=== PATIENT | female | born 1980 | race Caucasian/White ===

== ENCOUNTER 2017-04-17 09:50 | Emergency (ER) | payer OTHER ==
--- NOTE | 2017-04-17 13:12 | UC ---
Minor Trauma HPI - HPI Summary HPI Summary: 1. 2 DAYS AGO TRIPPED ON THE STAIRS AND FELL FORWARD. LANDED ON KNEES AND ELBOWS. HAS ABRASION TO LEFT KNEE AND PAIN WITH WALKING. ALSO PAIN IN LEFT ELBOW. NO HEAD INJURY. NO LOC. TDAP 2014. 2. C/O 3 WEEKS OF LEFT EAR PAIN AND DIZZINESS. HAS HAD THESE SX INTERMITTENTLY FOR ABOUT A YEAR AND FOLLOWS WITH ENT. HAS A SURGICAL CONSULT UPCOMING. - History of Current Complaint Chief Complaint: UCUpperExtremity Stated Complaint: elbow injury and ear ache Time Seen by Provider: 04/17/17 12:51 Hx Obtained From: Patient Hx Last Menstrual Period: 03/30/2017 Onset/Duration: Sudden Onset, Lasting Days, Still Present Onset Of Pain: Immediate Severity Initially: Moderate Severity Currently: Moderate Pain Intensity: 9 Pain Scale Used: 0-10 Numeric Mechanism Of Injury: Fall From A Standing Position Aggravating Factor(s): Ambulation Alleviating Factor(s): Nothing Associated Signs And Symptoms: Negative: Loss Of Consciousness - Allergies/Home Medications Allergies/Adverse Reactions: Allergies Allergy/AdvReac Type Severity Reaction Status Date / Time Cephalexin [From Keflex] Allergy Intermediate Hives Verified 04/17/17 11:34 Home Medications: Home Medications B-Complex Vitamins [Vitamin B Complex] 1 tab PO DAILY WITH MEAL 04/17/17 [ History Confirmed 04/17/17] Cholecalciferol [Vitamin D] 1,000 unit PO DAILY WITH MEAL 04/17/17 [History Confirmed 04/17/17] DULoxetine DR CAP* [Cymbalta CAP*] 60 mg PO DAILY 04/17/17 [History Confirmed ] Magnesium [Magnesium 400 mg] 1 tab PO DAILY WITH MEAL 04/17/17 [History Confirmed 04/17/17] Nuvaring 04/17/17 [History] Zinc [Elite Zinc] 15 mg PO DAILY WITH MEAL 04/17/17 [History Confirmed 04/17/17] PMH/Surg Hx/FS Hx/Imm Hx - Additional Past Medical History Additional PMH: "AUTOIMMUNE ISSUES" Respiratory History: Asthma Other GI/ History: CELIAC - Surgical History Surgical History: Yes Surgery Procedure, Year, and Place: DENTAL SURGERY 04/21/14. T&A 05/12/13. C SECTION 10/17/14. NUVARING - SAFE FOR ONLY 1.5T - Family History Known Family History: Positive: Hypertension - Social History Alcohol Use: Occasionally Substance Use Type: None Smoking Status (MU): Former Smoker Type: Cigarettes Have You Smoked in the Last Year: Yes Household Exposure Type: Cigarettes - Immunization History Most Recent Influenza Vaccination: 2016 Most Recent Tetanus Shot: 07/11/14 Most Recent Pneumonia Vaccination: n/a Review of Systems Constitutional: Negative Skin: Other - ABRASION ENT: Ear Ache Respiratory: Negative Cardiovascular: Negative Gastrointestinal: Negative Musculoskeletal: Arthralgia, Decreased ROM, Edema All Other Systems Reviewed And Are Negative: Yes Physical Exam Triage Information Reviewed: Yes Appearance: Well-Appearing, No Pain Distress, Well-Nourished Vital Signs: Initial Vital Signs Temp 98.7 F 04/17/17 11:38 Pulse 81 04/17/17 11:38 Resp 18 04/17/17 11:38 BP 114/77 04/17/17 11:38 Pulse Ox 100 04/17/17 11:38 Vital Signs Reviewed: Yes Eyes: Positive: Conjunctiva Clear ENT: Positive: Hearing grossly normal, Pharynx normal, TMs normal Neck: Positive: Supple Respiratory: Positive: No respiratory distress, No accessory muscle use Cardiovascular: Positive: Pulses Normal Abdomen Description: Positive: Soft Musculoskeletal: Positive: No Edema, ROM Limited @ - LEFT KNEE, Other: - TTP LEFT ELBOW MEDIAL EPICONDYLE. FULL ROM LEFT ELBOW. LEFT KNEE: TENDER DIFFUSELY OVER KNEE. MCL AND LCL INTACT TO STRESS TESTING. NEG LACHMANS. NEG DRAWERS SIGNS. POS MCMURRAYS MEDIAL. NO TENDERNESS OVER PATELLAR LIGAMENT OR QUADRICEPS TENDON. DECREASED ROM (FLEXION). Neurological: Positive: Alert Psychological: Positive: Age Appropriate Behavior Skin: Positive: Other - ABRASION LEFT KNEE. ECCHYMOSIS RIGHT KNEE Diagnostics - Radiology LEFT ELBOW XRAY Xray Interpretation: No Acute Changes Radiology Interpretation Completed By: Radiologist No standard instances Xray Interpretation: No Acute Changes Radiology Interpretation Completed By: Radiologist Minor Trauma Course/Dx - Differential Dx/Diagnosis Provider Diagnoses: 1. LEFT KNEE SPRAIN. 2. LEFT ELBOW CONTUSION. 3. LEFT KNEE ABRASION Discharge - Discharge Plan Condition: Stable Disposition: HOME Patient Education Materials: Knee Sprain (ED), Contusion in Adults (ED), Elbow Sprain (ED), Abrasion (ED) Referrals: Jose Smith MD [Medical Doctor] - If Needed Luis Montes MD [Primary Care Provider] - If Needed Additional Instructions: LEFT ELBOW AND LEFT KNEE XRAYS TODAY UNREMARKABLE. REST, ICE, COMPRESS, ELEVATE. SLING NEEDED FOR COMFORT. OTC MEDS FOR PAIN. ANTIBIOTIC OINTMENT AND NONSTICK BANDAGE ON YOUR KNEE ABRASION. FOLLOW-UP WITH ORTHO IF NOT IMPROVING OVER THE NEXT 1-2 WEEKS. CALL YOUR ENT TO DISCUSS YOUR PERSISTENT EAR PAIN.
--- NOTE | 2017-04-17 13:43 | RAD ---
HISTORY: Fall, medial epicondyles pain, left elbow COMPARISONS: None VIEWS: 4, Frontal, lateral, and oblique views of the left elbow FINDINGS: BONE DENSITY: Normal. BONES: There is no displaced fracture. JOINTS: There is no arthropathy. There is no posterior supracondylar fat pad to suggest a joint effusion. ALIGNMENT: There is no dislocation. SOFT TISSUES: Unremarkable. OTHER FINDINGS: None. IMPRESSION: NO ACUTE OSSEOUS INJURY. IF SYMPTOMS PERSIST, RECOMMEND REPEAT IMAGING.
--- NOTE | 2017-04-17 13:44 | RAD ---
HISTORY: Fall, left knee pain COMPARISONS: None VIEWS: 4, Frontal, lateral, axial, and oblique views of the left knee FINDINGS: BONE DENSITY: Normal. BONES: There is no displaced fracture. JOINTS: There is no arthropathy. There is no suprapatellar joint effusion or lipohemarthrosis. ALIGNMENT: There is no dislocation. SOFT TISSUES: Unremarkable. OTHER FINDINGS: None. IMPRESSION: NO ACUTE OSSEOUS INJURY. IF SYMPTOMS PERSIST, RECOMMEND REPEAT IMAGING.
[2017-04-17] MEDS ORDERED: Acetaminophen TAB* 325 MG PO ONE (13:54)
[2017-04-17 14:15] VITALS: BP 120/80
== END 2017-04-17 14:16 | disposition home or self-care (01) ==
LOC: UCEAST 09:50
DX: S80.212A Abrasion, left knee, initial encounter (principal); S50.02XA Contusion of left elbow, initial encounter; S83.92XA Sprain of unspecified site of left knee, initial encounter; W10.9XXA Fall (on) (from) unspecified stairs and steps, initial encounter; Y93.01 Activity, walking, marching and hiking; Y92.9 Unspecified place or not applicable; Y99.9 Unspecified external cause status; H92.02 Otalgia, left ear; R42 Dizziness and giddiness; Z87.891 Personal history of nicotine dependence
CPT/HCPCS: 99213; A9270-GY; G0463

== ENCOUNTER → 2017-05-17 20:34 | Emergency (ER) | payer OTHER ==
[~2017-05-17 20:34] MED LIST: HYDROmorphone INJ* 1 MG/ML CARPUJECT SYRINGE IM ONE; PROCHLORPERAZINE INJ 5 MG/ML 2 ML VIAL IM ONE
--- OUTSIDE RECORDS SUMMARY | 2017-05-17 20:54 | XMS REPORT ---
:1980 External Reference #:[id number] Author Organization [facility] Address [address] [address] Phone [phone] Care Team Providers Name Role Phone Luis Montes MD Primary Care Physician Unavailable Payers Type Date Identification Numbers Payment Provider Subscriber Commercial Policy Number: [id number] [facility] PayID: [id number] [address] [address] [place] [address] Problems Date Description Provider Status Onset: 10/17/2015 Immunologic Xavi Granda M.D. Active Onset: 10/17/2015 Inflammatory polyarthropathy Xavi Granda M.D. Active Onset: 10/17/2015 Other specified abnormal immunological Xavi Granda M.D. Active findings in serum Onset: 10/17/2015 Taking medication Xavi Granda M.D. Active Onset: 10/17/2015 Chronic pain Xavi Granda M.D. Active Family History Date Family Member(s) Problem(s) Comments General Rheumatoid Arthritis Father Iga deficiency Social History Type Date Description Comments ETOH Use Denies alcohol use Smoking Patient is a former smoker Allergies, Adverse Reactions, Alerts Date Description Reaction Status Severity Comments 07/17/2015 Keflex Urticaria active 07/17/2015 Gluten Celiac disease active 07/17/2015 Bee Sting active 04/21/2017 Tizanidine active Medications Medication Date Status Form Strength Qnty SIG Indications Ordering Provider Voltaren 04/24/ Active Gel 1% 200un apply 2 H92.02 2016 its grams Margarita, twice M.D. daily as needed for pain to the posterior left ear Cymbalta 04/24/ Active Caps DR 60mg 90cap 1 by mouth M35.7 2016 Part s every day Chiara Avila Methotrexate 03/16/ Active Tablets 2.5mg 30tab take 4 M06.4 Kai 2016 s capsules/t Margarita, ablets by Chiara mouth once weekly Folic Acid 03/16/ Active Tablets 1mg 90tab take one M06.4 2016 s capsule/ta Margarita, blet daily M.D. by mouth Tramadol HCL 12/12/ Active Tablets 50mg 60tab take one 2016 s capsule/ta Margarita, blet by MOtis mouth twice daily as needed for pain Cyclobenzaprine 09/23/ Active Tablets 10mg 30tab one by Kai DIXON 2016 s mouth at [facility], at bedtime M.D. as needed for spasms Nuvaring / Active Ring 0.12-0.01 Zane-H 0000 5mg/24HR Salina epstein PA Epipen 2-Alfred / Active Solution 0.3mg/0.3 use as Unknown 0000 Auto-Injec ML directed t Vitamin B Complex / Active Tablets 1 by mouth Unknown 0000 every day Vitamin D3 / Active Chewtabs 5000Unit 1 by mouth Unknown 0000 every day Zinc Chelated / Active Tablets 1 tab Unknown 0000 daily (otc) Magnesium / Active Tablets 1 by mouth Unknown 0000 every day Acetaminophen / Active Tablets 500mg 1-2 tabs Unknown 0000 3x a day as needed Prednisone 03/03/ Hx Tablets 10mg 30tab take 4 2016 - tabs by Margarita 04/24/ mouth M.D. 2016 daily for 2 days then 3 tabs daily for 2 days then 2 tabs for 2 days then 1 tab for 2 days then d/c Cymbalta 12/17/ Hx Caps DR 30mg 42cap 1 by mouth M35.7 Kai 2016 - Part s every day Margarita 04/24/ for 1 week M.D. 2016 then 2 daily ongoing Etodolac 12/12/ Hx Tablets 400mg 30tab Take one Kai 2016 - s capsule/ta Margarita, 03/16/ blet by Chiara Georges mouth twice daily as needed for pain, avoid with other NSAIDs Prednisone 11/17/ Hx Tablets 10mg 30tab take four Kai 2016 - s tabs daily Margarita, 12/12/ for 2 days M.D. 2016 and taper by 10mg every 2 days until finished Meloxicam 09/23/ Hx Tablets 7.5mg 60tab take one Kai 2016 - s tab twice Margarita, 12/09/ daily as M.D. 2017 needed for pain, avoid other nsaids Plaquenil 07/22/ Hx Tablets 200mg 60tab Take 1 M35.7 Kai 2016 - s Tablet By Margarita, 12/17/ Mouth M.D. 2016 Every Day For 1 Week, Then Take 2 Tablets By Mouth Every Day Ongoing Enbrel 05/26/ Hx Soln 50mg/ml 11.76 50mg sq M06.4 Kai 2016 - Prefill ml every week Margarita, 09/23/ Syringe (hasn't M.D. 2016 started it yet) Aleve 10/16/ Hx Tablets 220mg as needed Xavi 2015 - Endo, 09/23/ M.D. 2016 Diclofenac Sodium 10/16/ Hx Tablets DR 75mg 60tab 1 by mouth M06.4 Xavi 2015 - s twice a Endo, 05/20/ day M.D. 2016 Sulfasalazine 10/16/ Hx Tablets DR 500mg 120ta 1 every M06.4 Xavi 2015 - bs day x 1 Endo, 03/04/ week, 1bid M.D. 2015 x 1 week, then 1 three times a day x 1 week, then 2 by mouth twice a day Vitamin D / Hx Tablets 4000Iu by mouth Unknown 0000 - everyday 2015 Vitamin C / Hx Tablets 500mg 1 by mouth Unknown 0000 - every day 2015 Ibuprofen / Hx Capsules 200mg as needed Unknown 0000 - 2016 Medications Administered in Office Medication Date Status Form Strength Qnty SIG Indications Ordering Provider PPD Administered Injection Unknown 7 Vital Signs Date Vital Result Comment 04/22/2017 Heart Rate 78 /min BP Systolic Sitting 124 mmHg BP Diastolic Sitting 80 mmHg Respiratory Rate 18 /min Body Temperature 96.9 F 03/16/2017 Height 67.5 inches 5'7.50" Weight 212.00 lb Heart Rate 63 /min BP Systolic Sitting 121 mmHg BP Diastolic Sitting 82 mmHg Respiratory Rate 14 /min Pain Level 5 BMI (Body Mass Index) 32.7 kg/m2 01/08/2017 Height 67.5 inches 5'7.50" Weight 200.00 lb Heart Rate 72 /min BP Systolic 134 mmHg BP Diastolic 82 mmHg Respiratory Rate 16 /min Body Temperature 97.8 F BMI (Body Mass Index) 30.9 kg/m2 12/17/2016 Height 67.5 inches 5'7.50" Heart Rate 88 /min BP Systolic Sitting 110 mmHg BP Diastolic Sitting 70 mmHg Respiratory Rate 14 /min Pain Level 7 09/23/2016 Height 67.5 inches 5'7.50" Weight 198.00 lb Heart Rate 84 /min BP Systolic Sitting 110 mmHg BP Diastolic Sitting 70 mmHg Respiratory Rate 14 /min BMI (Body Mass Index) 30.6 kg/m2 07/22/2016 Height 67.5 inches 5'7.50" Weight 205.38 lb Heart Rate 74 /min BP Systolic Sitting 124 mmHg BP Diastolic Sitting 82 mmHg Respiratory Rate 14 /min Body Temperature 96.8 F Pain Level 8 BMI (Body Mass Index) 31.7 kg/m2 05/26/2016 Height 67.5 inches 5'7.50" Weight 204.00 lb Heart Rate 80 /min BP Systolic Sitting 120 mmHg BP Diastolic Sitting 80 mmHg Respiratory Rate 14 /min Body Temperature 96.2 F Pain Level 5 BMI (Body Mass Index) 31.5 kg/m2 11/28/2015 Height 67.5 inches 5'7.50" Weight 193.12 lb Heart Rate 80 /min BP Systolic Sitting 128 mmHg BP Diastolic Sitting 80 mmHg Respiratory Rate 14 /min Body Temperature 98.6 F Pain Level 5 Lower back BMI (Body Mass Index) 29.8 kg/m2 10/17/2015 Height 67.5 inches 5'7.50" Weight 199.00 lb Heart Rate 82 /min BP Systolic Sitting 104 mmHg BP Diastolic Sitting 78 mmHg Body Temperature 98.4 F Pain Level 4 BMI (Body Mass Index) 30.7 kg/m2 07/17/2015 Height 67.5 inches 5'7.50" Weight 203.00 lb Heart Rate 70 /min BP Systolic Sitting 110 mmHg BP Diastolic Sitting 78 mmHg Pain Level 4 BMI (Body Mass Index) 31.3 kg/m2 Results Test Date Test Result H/L Range Note Comp Metabolic Panel 12/15/2016 Sodium 138 mmol/L 133-145 Potassium 4.0 mmol/L 3.5-5.0 Chloride 107 mmol/L 101-111 Co2 Carbon Dioxide 24 mmol/L 22-32 Anion Gap 7 mmol/L 2-11 Glucose 86 mg/dL 70-100 Blood Urea Nitrogen 9 mg/dL 6-24 Creatinine 0.72 mg/dL 0.51-0.95 BUN/Creatinine Ratio 12.5 8-20 Calcium 9.2 mg/dL 8.6-10.3 Total Protein 6.8 g/dL 6.4-8.9 Albumin 4.3 g/dL 3.2-5.2 Globulin 2.5 g/dL 2-4 Albumin/Globulin Ratio 1.7 1-3 Total Bilirubin 1.00 mg/dL 0.2-1.0 Alkaline Phosphatase 31 U/L Low 34-104 Alt 18 U/L 7-52 Ast 15 U/L 13-39 Egfr Non- 92.2 >60 Egfr 118.5 >60 1 CBC Auto Diff 12/15/2016 White Blood Count 6.0 10^3/uL 3.5-10.8 Red Blood Count 4.76 10^6/uL 4.0-5.4 Hemoglobin 13.4 g/dL 12.0-16.0 Hematocrit 39 % 35-47 Mean Corpuscular Volume 82 fL 80-97 Mean Corpuscular Hemoglobin 28 pg 27-31 Mean Corpuscular HGB Conc 34 g/dL 31-36 Red Cell Distribution Width 14 % 10.5-15 Platelet Count 241 10^3/uL 150-450 Mean Platelet Volume 9 um3 7.4-10.4 Abs Neutrophils 3.8 10^3/uL 1.5-7.7 Abs Lymphocytes 1.7 10^3/uL 1.0-4.8 Abs Monocytes 0.2 10^3/uL 0-0.8 Abs Eosinophils 0.2 10^3/uL 0-0.6 Abs Basophils 0 10^3/uL 0-0.2 Abs Nucleated RBC 0 10^3/uL Granulocyte % 63.3 % 38-83 Lymphocyte % 28.3 % 25-47 Monocyte % 4.1 % 1-9 Eosinophil % 3.6 % 0-6 Basophil % 0.7 % 0-2 Nucleated Red Blood Cells % 0 Laboratory test finding 12/15/2016 Erythrocyte Sed Rate 4 mm/Hr 0-14 2 C Reactive Protein 5.52 mg/L High < 5.00 3 Urinalysis Profile 12/15/2016 Urine Color Yellow Urine Appearance Cloudy Urine Specific [place] 1.013 1.010-1.030 Urine pH 5.0 5-9 Urine Urobilinogen Negative Negative Urine Ketones Negative Negative Urine Protein Negative Negative Urine Leukocytes Trace Negative Urine Blood Negative Negative Urine Nitrite Negative Negative Urine Bilirubin Negative Negative Urine Glucose Negative Negative Urine White Blood Cell Trace(0-5/hpf) Absent Urine Red Blood Cell Trace(0-2/hpf) Absent Urine Bacteria Absent Absent Urine Squamous Epithelial Cell Present Absent Urine Culture And 12/15/2016 Urine Culture SEE RESULT BELOW 4 Sensitivities Laboratory test finding 09/19/2016 Erythrocyte Sed Rate 7 mm/Hr 0-14 C Reactive Protein 2.04 mg/L < 5.00 5 CBC Auto Diff 09/19/2016 White Blood Count 4.6 10^3/uL 3.5-10.8 Red Blood Count 5.11 10^6/uL 4.0-5.4 Hemoglobin 13.8 g/dL 12.0-16.0 Hematocrit 41 % 35-47 Mean Corpuscular Volume 81 fL 80-97 Mean Corpuscular Hemoglobin 27 pg 27-31 Mean Corpuscular HGB Conc 34 g/dL 31-36 Red Cell Distribution Width 14 % 10.5-15 Platelet Count 249 10^3/uL 150-450 Mean Platelet Volume 9 um3 7.4-10.4 Abs Neutrophils 2.4 10^3/uL 1.5-7.7 Abs Lymphocytes 1.8 10^3/uL 1.0-4.8 Abs Monocytes 0.3 10^3/uL 0-0.8 Abs Eosinophils 0.1 10^3/uL 0-0.6 Abs Basophils 0 10^3/uL 0-0.2 Abs Nucleated RBC 0 10^3/uL Granulocyte % 52.6 % 38-83 Lymphocyte % 38.3 % 25-47 Monocyte % 6.6 % 1-9 Eosinophil % 1.5 % 0-6 Basophil % 1.0 % 0-2 Nucleated Red Blood Cells % 0.1 Laboratory test 09/19/2016 Immunoglobulin A (Iga) 125 mg/dL 61 - 356 6 finding Laboratory test 07/22/2016 Erythrocyte Sed Rate <pending> finding C Reactive Protein <pending> Laboratory test 07/22/2016 Immunoglobulin A (Iga) <pending> finding Laboratory test 07/01/2016 C Reactive Protein 2.93 mg/L < 5.00 7 finding Connective Tissue 07/01/2016 Anti-Nuclear Antibody 0.3 U 8 Panel Cyclic Citrullinated Peptide <15.6 U 9 Interpretation See Comment 10 CBC Auto Diff 07/01/2016 White Blood Count 6.7 10^3/uL 3.5-10.8 Red Blood Count 4.80 10^6/uL 4.0-5.4 Hemoglobin 12.7 g/dL 12.0-16.0 Hematocrit 38 % 35-47 Mean Corpuscular Volume 79 fL Low 80-97 Mean Corpuscular Hemoglobin 26 pg Low 27-31 Mean Corpuscular HGB Conc 33 g/dL 31-36 Red Cell Distribution Width 15 % 10.5-15 Platelet Count 234 10^3/uL 150-450 Mean Platelet Volume 9 um3 7.4-10.4 Abs Neutrophils 4.3 10^3/uL 1.5-7.7 Abs Lymphocytes 1.8 10^3/uL 1.0-4.8 Abs Monocytes 0.4 10^3/uL 0-0.8 Abs Eosinophils 0.1 10^3/uL 0-0.6 Abs Basophils 0 10^3/uL 0-0.2 Abs Nucleated RBC 0.01 10^3/uL Granulocyte % 64.2 % 38-83 Lymphocyte % 27.5 % 25-47 Monocyte % 6.2 % 1-9 Eosinophil % 1.5 % 0-6 Basophil % 0.6 % 0-2 Nucleated Red Blood Cells % 0.1 Comp Metabolic Panel 07/01/2016 Sodium 138 mmol/L 133-145 Potassium 4.0 mmol/L 3.5-5.0 Chloride 107 mmol/L 101-111 Co2 Carbon Dioxide 24 mmol/L 22-32 Anion Gap 7 mmol/L 2-11 Glucose 92 mg/dL 70-100 Blood Urea Nitrogen 7 mg/dL 6-24 Creatinine 0.75 mg/dL 0.51-0.95 BUN/Creatinine Ratio 9.3 8-20 Calcium 9.3 mg/dL 8.6-10.3 Total Protein 6.7 g/dL 6.4-8.9 Albumin 4.2 g/dL 3.2-5.2 Globulin 2.5 g/dL 2-4 Albumin/Globulin Ratio 1.7 1-3 Total Bilirubin 1.10 mg/dL High 0.2-1.0 Alkaline Phosphatase 37 U/L 34-104 Alt 20 U/L 7-52 Ast 15 U/L 13-39 Egfr Non- 88.5 >60 Egfr 113.8 >60 11 Laboratory test finding 07/01/2016 Rheumatoid Factor 17 IU/mL <15 12 Uric Acid 4.3 mg/dL 2.3-6.6 13 Laboratory test finding 09/03/2015 Angiotensin Converting Enzyme 19 U/L 8 - 53 14 C Reactive Protein 2.07 mg/L < 5.00 15 Cyclic Citrullinated Pep Igg <15.6 U 16 Joanna Igg AB Reflex 09/03/2015 SS-A/Ro Antibody <0.2 U 17 SS-B/La Antibody <0.2 U 18 Sm (Lopez) IgG Antibody <0.2 U 19 U1-nRNP Antibody <0.2 U 20 Scl-70 (Scleroderma) Antibody <0.2 U 21 Myranda-1 Antibody <0.2 U 22 Igg Subclasses 09/03/2015 Total IgG 790 mg/dL 767 - 1590 Immunoglobulin G1 467 mg/dL 341 - 894 Immunoglobulin G2 232 mg/dL 171 - 632 Immunoglobulin G3 58.3 mg/dL 23 Immunoglobulin G4 23.1 mg/dL 24 S.Pneumoniae Igg AB 23 09/03/2015 S. pneumoniae Type 1 <0.5 g/mL &gt ;=2.3 Serotyp IgG AB S. pneumoniae Type 2 IgG AB 0.7 g/mL >=1.0 S. pneumoniae Type 3 IgG AB 0.2 g/mL >=1.8 S. pneumoniae Type 4 IgG AB <0.2 g/mL >=0.6 S. pneumoniae Type 5 IgG AB 6.2 g/mL >=10.7 S. pneumoniae Type 8 IgG AB <0.3 g/mL >=2.9 S. pneumoniae Type 9N IgG AB 1.1 g/mL >=9.2 S. pneumoniae Type 12F IgG AB <0.1 g/mL >=0.6 S. pneumoniae Type 14 IgG AB 9.4 g/mL >=7.0 S. pneumoniae Type 17F IgG AB <0.9 g/mL >=7.8 S. pneumoniae Type 19F IgG AB 5.3 g/mL >=15.0 S. pneumoniae Type 20 IgG AB <0.2 g/mL >=1.3 S. pneumoniae Type 22F IgG AB 4.0 g/mL >=7.2 S. pneumoniae Type 23F IgG AB 1.3 g/mL >=8.0 S. pneumoniae Type 6B IgG AB <0.6 g/mL >=4.7 S. pneumoniae Type 10A IgG AB <0.5 g/mL >=2.9 S. pneumoniae Type 11A IgG AB 0.8 g/mL >=2.4 S. pneumoniae Type 7F IgG AB 1.1 g/mL >=3.2 S. pneumoniae Type 15B IgG AB 3.2 g/mL >=3.3 S. pneumoniae Type 18C IgG AB <0.1 g/mL >=3.3 S. pneumoniae Type 19A IgG AB <0.8 g/mL >=17.1 S. pneumoniae Type 9V IgG AB 2.3 g/mL >=2.6 S. pneumoniae Type 33F IgG AB 1.4 g/mL >=1.7 25 Laboratory test finding 09/03/2015 Immunoglobulin G (Igg) TNP 26 Immunoglobulin M (Igm) 48 mg/dL 37 - 286 27 Hepatitis Acute Panel 09/03/2015 Hepatitis C Antibody Nonreactive Nonreactive Hepatitis A AB Igm Nonreactive Nonreactive Hepatitis B Core AB Igm Nonreactive Nonreactive Hepatitis B Surface Ag Nonreactive Nonreactive Laboratory test finding 09/03/2015 Erythrocyte Sed Rate 9 mm/Hr 0-14 Rheumatoid Factor 25 IU/mL <15 28 Hla B27 09/03/2015 Hla B27 Positive 29 Hla B27 Interp See Comment 30 1 Because ethnic data is not always readily available, this report includes an eGFR for both -Americans and non- Americans. The National Kidney Disease Education Program (NKDEP) does not endorse the use of the MDRD equation for patients that are not between the ages of 18 and 70, are , have extremes of body size, muscle mass, or nutritional status, or are non- or non-. According to the National Kidney Foundation, irrespective of diagnosis, the stage of the disease is based on the level of kidney function: Stage Description GFR(mL/min/1.73 m(2)) 1 Kidney damage with normal or decreased GFR 90 2 Kidney damage with mild decrease in GFR 60-89 3 Moderate decrease in GFR 30-59 4 Severe decrease in GFR 15-29 5 Kidney failure <15 (or dialysis) 2 Please schedule labs and u/a and renal ultrasound this week 3 Acute inflammation: >10.00 4 SEE RESULT BELOW Name: LORRIE GOMEZ : [address]: Kai Avila MD Acct: [id number] Unit: [id number] AGE: 36 Location: LAB Re12/15/16 SEX: F Status: REG REF SPEC: [id number] STEVEN: 12/15/16-[address] [facility] [address]: Kai Avila MD REQ: [id number] RECD: 12/15/16 STATUS: COMP _ SOURCE: URINE SPDESC: ORDERED: Urine Culture Procedure Result Reported Site Urine Culture Final 12/17/16- 820 ML Organism 1 ESCHERICHIA COLI [place] Count 25-50,000 (Moderate) CFU/ML Organism 2 NORMAL BONG [place] Count 10-25,000 (Moderate) CFU/ML 1. ESCHERICHIA COLI M.I.C. RX --------- ------ Ampicillin <=2 S Cefazolin <=4 S Cefepime <=1 S Ceftriaxone <=1 S Ciprofloxacin <=0.25 S Gentamicin <=1 S Levofloxacin <=0.12 S Meropenem <=0.25 S Nitrofurantoin <=16 S Tetracycline <=1 S Pipercillin/Tazobactam <=4 S Trimethoprim/Sulfamethoxazole <=20 S Amoxicillin/Clavulanic Acid <=2 S Aztreonam <=1 S Contact the Microbiology Department for any additional antibiotic reporting. * ML - MAIN LAB ([facility]) . END OF REPORT * ML=Testing performed at Main Lab DEPARTMENT OF PATHOLOGY, [address] [place] [address] Juan Pablo Mixon M.D. Director [facility] # [id number] 5 Acute inflammation: >10.00 6 Test Performed by: [place] [address] 7 Acute inflammation: >10.00 8 REFERENCE VALUE <=1.0 (Negative) 9 REFERENCE VALUE <20.0 (Negative) 10 Tests for antibodies to dsDNA and JOANNA antigens are not performed automatically unless the ANJANA result is > or= 3.0 U. Studies performed at [facility] indicate that positive ANJANA results <3.0 U are rarely accompanied by positive second order tests. Test Performed by: [place] [address] Paper Counter: Marc Porter II, M.D., Ph.D. 11 Because ethnic data is not always readily available, this report includes an eGFR for both -Americans and non- Americans. The National Kidney Disease Education Program (NKDEP) does not endorse the use of the MDRD equation for patients that are not between the ages of 18 and 70, are , have extremes of body size, muscle mass, or nutritional status, or are non- or non-. According to the National Kidney Foundation, irrespective of diagnosis, the stage of the disease is based on the level of kidney function: Stage Description GFR(mL/min/1.73 m(2)) 1 Kidney damage with normal or decreased GFR 90 2 Kidney damage with mild decrease in GFR 60-89 3 Moderate decrease in GFR 30-59 4 Severe decrease in GFR 15-29 5 Kidney failure <15 (or dialysis) 12 Test Performed by: [place] [address] Paper Counter: Marc Porter II, M.D., Ph.D. 13 Please schedule labs this week 14 Test Performed by: [facility] [address] [place] [address] Paper Counter: Marc Porter II, M.D., Ph.D. 15 Acute inflammation: >10.00 16 REFERENCE VALUE <20.0 (Negative) Test Performed by: [facility] [address] [place] [address] Paper Counter: Marc Porter II, M.D., Ph.D. 17 REFERENCE VALUE <1.0 (Negative) 18 REFERENCE VALUE <1.0 (Negative) 19 REFERENCE VALUE <1.0 (Negative) 20 REFERENCE VALUE <1.0 (Negative) 21 REFERENCE VALUE <1.0 (Negative) 22 REFERENCE VALUE <1.0 (Negative) Test Performed by: [address] [address] Paper Counter: Marc Porter II, M.D., Ph.D. 23 REFERENCE VALUE 18.4 - 106.0 24 REFERENCE VALUE 2.4 - 121.0 Test Performed by: [place] [address] Paper Counter: Marc Porter II, M.D., Ph.D. 25 Either of the two following conditions would be consistent with a normal response to Streptococcus pneumoniae vaccination: Antibody concentrations greater than or equal to the reference value for at least 50% of serotypes in either a pre- or post-vaccination sample. Antibody concentrations increased by 2-fold or greater for at least 50% of serotypes when comparing the pre- to the post-vaccination results. Optimal cut-offs (reference values) were derived by measuring serotype-specific IgG antibody levels in an adult cohort of 100 healthy individuals (previously unvaccinated) before and after pneumococcal vaccination and identifying the antibody level for each serotype that included the largest number of individuals with a negative response (below cut-off) pre-vaccination and a positive response (above cut-off) post-vaccination. ADDITIONAL INFORMATION All 23 serotypes assessed by this assay are included in the Pneumovax 23 vaccine. IgG antibody concentrations following Pneumovax 23 administration are a reflection of an individual's humoral immune response to polysaccharide antigens. Serotypes 1, 3, 4, 5, 6A (6), 14, 19F (19), 23F (23), 6B (26), 7F (51), 18C (56), 19A (57) and 9V (68) are included in the Prevnar-13 conjugate vaccine. Antibody concentrations following Prevnar-13 administration are a reflection of an individual's response to protein-conjugated antigens. Serotypes 2, 8, 9N (9), 12F (12), 17F (17), 20, 22F (22), 10A (34), 11A (43), 15B (54) and 33F (70) are present only in the Pneumovax 23 vaccine and not in Prevnar-13. Responses to these 11 serotypes are a reflection of an individual's response to polysaccharide antigens. Serotype 6A is only present in Prevnar-13. Test Performed by: [place] [address] Paper Counter: Marc Porter II, M.D., Ph.D. 26 Immunoglobulin G (IgG), S was cancelled on 09/05/2015 at 08:23; Test cancelled by RBS rule <IGGS2> Reason: Test IGG is cancelled due to be ordered with Test IGGS Test Performed by: [place] [address] Paper Counter: Marc Porter II, M.D., Ph.D. 27 Test Performed by: [place] [address] Paper Counter: Marc Porter II, M.D., Ph.D. 28 Test Performed by: [place] [address] Paper Counter: Marc Porter II, M.D., Ph.D. 29 REFERENCE VALUE Not Applicable 30 HLA-B27 antigen was detected. Approximately 8% of the normal population carries the HLA-B27 antigen. HLA-B27 is present in approximately 89% of patients with ankylosing spondylitis, 79% of patients with Isaak's syndrome and 42% of patients with juvenile rheumatoid arthritis. However, lacking other data, it is not diagnostic for these disorders. This test does not differentiate B27 alleles. i.e. B*27:05, B*27:06, etc. ADDITIONAL INFORMATION Method: Flow Cytometry Performing Laboratory CLIA# [id number] Test Performed by: [address] [address] Paper Counter: Marc Porter II, M.D., Ph.D. Procedures Description No Information Encounters Type Date Location Provider CPT E/M Dx Office Visit 04/22/2017 [facility], [address] H92.02 9:15a Amor Guadarrama Office Visit 03/16/2017 [facility] Kai Avila M.D. 98435 M06.4 9:20a Of Amor M35.7 K90.0 M54.5 M46.90 Z79.899 Office Visit 01/08/2017 2:00p [facility] [place] [address] M54.5 Engagement Liaison D17.1 Office Visit 12/17/2016 10:20a [facility] Kai Avila 22709 M46.90 Of [facility] R74.8 M06.4 G89.4 Office Visit 09/23/2016 9:20a [facility] Kai Avila 06197 M06.4 Amor Guadarrama R74.8 M46.90 Z79.899 G89.4 Office Visit 07/22/2016 8:20a [facility] Avila 14298 M06.4 Amor Guadarrama R74.8 M46.90 D82.8 M35.7 Office Visit 05/26/2016 4:20p [facility] Avila 08838 M06.4 Amor Guadarrama Z79.899 K90.0 M46.90 Office Visit 11/28/2015 1:00p [facility] Kai Avila 72884 M06.4 Amor Guadarrama M47.9 Z79.899 Office Visit 10/17/2015 1:40p [facility] Xavi Granda M.D. 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
--- OUTSIDE RECORDS SUMMARY | 2017-05-17 20:55 | XMS REPORT ---
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 by mouth once weekly Folic Acid 03/16/ Active Tablets 1mg 90tab take one M06.4 2016 s capsule/t luis carlos Avilat M.D. daily by mouth Prednisone 03/03/ Active Tablets 10mg 30tab take 4 2016 s tabs by Margarita mouth M.D. daily for 2 days then 3 tabs daily for 2 days then 2 tabs for 2 days then 1 tab for 2 days then d/c Cymbalta 12/17/ Active Caps DR 30mg 42cap 1 by M35.7 2016 Part s mouth Margarita, every day M.D. for 1 week then 2 daily ongoing Tramadol HCL 12/12/ Active Tablets 50mg 60tab take one 2016 s capsule/t luis carlos Avilat by M.Rocael mouth twice daily as needed for pain Cyclobenzaprine 09/23/ Active Tablets 10mg 30tab one by Kai DIXON 2016 s mouth at [facility], at M.D. bedtime as needed for spasms Nuvaring / Active Ring 0.12-0.015 Zane-H 0000 mg/24HR Salina epstein PA Epipen 2-Alfred / Active Solution 0.3mg/0.3M use as Unknown 0000 Auto-Injec L directed t Vitamin B Complex / Active Tablets 1 by Unknown 0000 mouth every day Vitamin D3 / Active Chewtabs 5000Unit 1 by Unknown 0000 mouth every day Zinc Chelated / Active Tablets 1 tab Unknown 0000 daily (otc) Magnesium / Active Tablets 1 by Unknown 0000 mouth every day Acetaminophen / Active Tablets 500mg 1-2 tabs Unknown 0000 3x a day as needed Etodolac 12/12/ Hx Tablets 400mg 30tab Take one 2016 - s capsule/t Margarita, 03/16/ ablet by MOtis 2017 mouth twice daily as needed for pain, avoid with other NSAIDs Prednisone 11/17/ Hx Tablets 10mg 30tab take four 2016 - s tabs Margarita, 12/12/ daily for M.D. 2017 2 days and taper by 10mg every 2 days until finished Meloxicam 09/23/ Hx Tablets 7.5mg 60tab take one 2016 - s tab twice Margarita, 12/09/ [...] M06.4 Kai 2016 - Prefill ml every Margarita, 09/23/ Syringe week M.D. 2016 (hasn't started it yet) Aleve 10/16/ Hx Tablets 220mg as needed Xavi 2015 - Endo, 09/23/ M.D. 2016 Diclofenac Sodium 10/16/ Hx Tablets DR 75mg 60tab 1 by M06.4 Xavi 2015 - s mouth Endo, 05/20/ twice a M.D. 2016 day Sulfasalazine 10/16/ Hx Tablets DR 500mg 120ta 1 every M06.4 Xavi 2015 - bs day x 1 Endo, 03/04/ week, M.D. 2015 1bid x 1 week, then 1 three times a day x 1 week, then 2 by mouth twice a day Vitamin D / Hx Tablets 4000Iu by mouth Unknown 0000 - everyday 2015 Vitamin C / Hx Tablets 500mg 1 by Unknown 0000 - mouth 11/26/ every day 2015 Ibuprofen / Hx Capsules 200mg as needed Unknown 0000 - 2016 Vital Signs Date Vital Result Comment 04/22/2017 [...] Color Yellow Urine Appearance Cloudy Urine Specific [place] 1.013 1.010-1.030 Urine pH 5.0 5-9 Urine [...] Cyclic Citrullinated Pep Igg <15.6 U 16 Hla B27 09/03/2015 Hla B27 Positive 17 Hla B27 Interp See Comment 18 Laboratory test finding 09/03/2015 Erythrocyte Sed Rate 9 mm/Hr 0-14 Rheumatoid Factor 25 IU/mL <15 19 Hepatitis Acute Panel 09/03/2015 Hepatitis C Antibody Nonreactive Nonreactive Hepatitis A AB Igm Nonreactive Nonreactive Hepatitis B Core AB Igm Nonreactive Nonreactive Hepatitis B Surface Ag Nonreactive Nonreactive Laboratory test finding 09/03/2015 Immunoglobulin G (Igg) TNP 20 Immunoglobulin M (Igm) 48 mg/dL 37 - 286 21 Joanna Igg AB Reflex 09/03/2015 SS-A/Ro Antibody <0.2 U 22 SS-B/La Antibody <0.2 U 23 Sm (Lopez) IgG Antibody <0.2 U 24 U1-nRNP Antibody <0.2 U 25 Scl-70 (Scleroderma) Antibody <0.2 U 26 Myranda-1 Antibody <0.2 U 27 Igg Subclasses 09/03/2015 Total IgG 790 mg/dL 767 - 1590 Immunoglobulin G1 467 mg/dL 341 - 894 Immunoglobulin G2 232 mg/dL 171 - 632 Immunoglobulin G3 58.3 mg/dL 28 Immunoglobulin G4 23.1 mg/dL 29 S.Pneumoniae Igg AB 23 09/03/2015 S. pneumoniae [...] Type 33F IgG AB 1.4 g/mL >=1.7 30 1 Because ethnic data is not [...] [address]: Kai Avila MD Acct: [id number] Unit: [id number] AGE: 36 Location: LAB Re12/15/16 SEX: F Status: REG REF SPEC: [id number] STEVEN: 12/15/16-[address]: Kai Avila MD REQ: [id number] RECD: 12/15/16 STATUS: COMP _ SOURCE: URINE SPDESC: ORDERED: Urine Culture Procedure Result Reported Site Urine Culture Final 12/17/16- 820 ML Organism 1 ESCHERICHIA COLI [place] Count 25-50,000 (Moderate) CFU/ML Organism 2 NORMAL BONG [place] Count 10-25,000 (Moderate) CFU/ML 1. ESCHERICHIA COLI [...] any additional antibiotic reporting. * ML - [facility] ([facility]) . END OF REPORT * ML=Testing performed at Main Lab DEPARTMENT OF PATHOLOGY, [address] [place] [address] Juan Pablo Mixon M.D. Director [facility] # [id number] 5 Acute inflammation: >10.00 6 Test Performed by: [address] [address] 7 Acute inflammation: >10.00 8 REFERENCE VALUE <=1.0 (Negative) 9 REFERENCE VALUE <20.0 (Negative) 10 Tests for antibodies to dsDNA and JOANNA antigens are not performed automatically unless the ANJANA result is > or= 3.0 U. Studies performed at [facility] indicate that positive ANJANA results <3.0 U are rarely accompanied by positive second order tests. Test Performed by: [place] [address] Vocal Music Teacher: Marc Porter II, M.D., Ph.D. 11 Because [...] <15 (or dialysis) 12 Test Performed by: [place] [address] Vocal Music Teacher: Marc Porter II, M.D., Ph.D. 13 Please schedule labs this week 14 Test Performed by: [place] [address] Vocal Music Teacher: Marc Porter II, M.D., Ph.D. 15 Acute inflammation: >10.00 16 REFERENCE VALUE <20.0 (Negative) Test Performed by: [place] [address] Vocal Music Teacher: Marc Porter II, M.D., Ph.D. 17 REFERENCE VALUE Not Applicable 18 HLA-B27 antigen was detected. Approximately 8% of [...] INFORMATION Method: Flow Cytometry Performing Laboratory CLIA# [id number] Test Performed by: [place] [address] Vocal Music Teacher: Marc Porter II, M.D., Ph.D. 19 Test Performed by: [place] [address] Vocal Music Teacher: Marc Porter II, M.D., Ph.D. 20 Immunoglobulin G (IgG), S was cancelled on 09/05/2015 at 08:23; Test cancelled by RBS rule <IGGS2> Reason: Test IGG is cancelled due to be ordered with Test IGGS Test Performed by: [place] [address] Vocal Music Teacher: Marc Porter II, M.D., Ph.D. 21 Test Performed by: [place] [address] Vocal Music Teacher: Marc Porter II, M.D., Ph.D. 22 REFERENCE VALUE <1.0 (Negative) 23 REFERENCE VALUE <1.0 (Negative) 24 REFERENCE VALUE <1.0 (Negative) 25 REFERENCE VALUE <1.0 (Negative) 26 REFERENCE VALUE <1.0 (Negative) 27 REFERENCE VALUE <1.0 (Negative) Test Performed by: [address] [address] Vocal Music Teacher: Marc Porter II, M.D., Ph.D. 28 REFERENCE VALUE 18.4 - 106.0 29 REFERENCE VALUE 2.4 - 121.0 Test Performed by: [address] [place] [address] Vocal Music Teacher: Marc Porter II, M.D., Ph.D. 30 Either of the two following conditions would [...] only present in Prevnar-13. Test Performed by: [facility] [employer] - [address] [address] Vocal Music Teacher: Marc Porter II, M.D., Ph.D. Procedures Description No Information Encounters Type Date Location Provider CPT E/M Dx Office Visit 03/16/2017 Rheumatology Services Kai Avila M.D. 87415 M06.4 9:20a Of [facility] M35.7 K90.0 M54.5 M46.90 Z79.899 Office Visit 01/08/2017 2:00p [facility] [place] [address] M54.5 [facility] D17.1 Office Visit 12/17/2016 10:20a [facility] Kai Avila [address]2 M46.90 Of [facility] R74.8 M06.4 G89.4 Office Visit 09/23/2016 9:20a [facility] Of Kai Avila, [address] M06.4 [facility] [place] R74.8 M46.90 Z79.899 G89.4 Office Visit 07/22/2016 8:20a [facility] Of Kai Avila [address] M06.4 [facility] [place] R74.8 M46.90 D82.8 M35.7 Office Visit 05/26/2016 4:20p [facility] Of Kai Avila, [address] M06.4 [facility] [place] Z79.899 K90.0 M46.90 Office Visit 11/28/2015 1:00p [facility] Of Kai Avila, [address] M06.4 [facility] [place] M47.9 Z79.899 Office Visit 10/17/2015 1:40p [facility] Services Xavi Granda M.D. 50805 M06.4 Of [facility] R76.0 R76.8 Z79.899 G89.29 Office Visit 07/17/2015 9:00a [facility] Of aKi Avila, [address]26 M06.4 [facility] [place] R76.0 M54.14 D82.8 M35.7 Plan of Care Future Appointment(s):04/24/2017 10:20 am - Kai Avila M.D. at [facility]04/22/2017 - Brock Pillai M.D.H92.02 Otalgia, left earReferral:Kai Avila MD, RheumatologyFollow up:As needed
[2017-05-17 23:13] VITALS: BP 119/67
--- NOTE | 2017-05-18 00:05 | ED ---
Jones Mtz Nilda, scribed for Richard Pierce MD on 05/17/17 at 2128 . Burn - HPI Summary HPI Summary: This patient is a 36 year old F presenting to [facility] with a chief complaint of constant severe intact painful blisters on left ankle s/p accidentally spilling boiling water on skin a few hours ago. The patient rates the pain 10/10 in severity. Symptoms aggravated and alleviated by nothing. - History of Current Complaint Chief Complaint: EDBurnSmokeInh Stated Complaint: 3RD DEGREE QUIROZ Time Seen by Provider: 05/17/17 21:21 Hx Obtained From: Patient Hx Last Menstrual Period: 03/30/2017 Occurred: Hours Ago Onset Severity: Severe Current Severity: Severe Pain Intensity: 10 Pain Scale Used: 0-10 Numeric Location: RLE Character: Blisters: Intact Aggravating: Nothing Alleviating: Nothing - Allergy/Home Medications Allergies/Adverse Reactions: Allergies Allergy/AdvReac Type Severity Reaction Status Date / Time Cephalexin [From Keflex] Allergy Intermediate Hives Verified 05/17/17 20:48 PMH/Surg Hx/FS Hx/Imm Hx Endocrine/Hematology History: Denies: Hx Diabetes, Hx Thyroid Disease Cardiovascular History: Denies: Hx Congestive Heart Failure, Hx Hypertension, Hx Pacemaker/ICD Respiratory History: Reports: Hx Asthma Denies: Hx Chronic Obstructive Pulmonary Disease (COPD) GI History: Denies: Hx Ulcer Comment Only: Other GI Disorders - PAIN 2 YRS UNKNOWN History: Reports: Other Problems/Disorders - celiac disease Denies: Hx Renal Disease Sensory History: Denies: Hx Hearing Aid Neurological History: Reports: Other Neuro Impairments/Disorders - HX DEGENERATIVE BONE DISEASE Psychiatric History: Reports: Hx Anxiety, Hx Depression, Hx Panic Disorder - Surgical History Surgery Procedure, Year, and Place: DENTAL SURGERY 04/21/14. T&A 05/12/13. C SECTION 10/17/14. NUVARING - SAFE FOR ONLY 1.5T - Immunization History Date of Tetanus Vaccine: 12/13 Date of Influenza Vaccine: 01/10/14 Infectious Disease History: No Infectious Disease History: Denies: Hx Clostridium Difficile, Hx Hepatitis, Hx Human Immunodeficiency Virus (HIV), Hx of Known/Suspected MRSA, Hx Shingles, Hx Tuberculosis, Traveled Outside the [place] in Last 30 Days - Family History Known Family History: Positive: Hypertension, Diabetes - Social History Alcohol Use: Occasionally Substance Use Type: Reports: None Smoking Status (MU): Former Smoker Type: Cigarettes Have You Smoked in the Last Year: Yes Review of Systems Negative: Shortness Of Breath Positive: Other - intact blistering burn on right ankle All Other Systems Reviewed And Are Negative: Yes Physical Exam - Summary Physical Exam Summary: VITAL SIGNS: Reviewed. GENERAL: Patient is a well-developed and nourished female who is lying comfortable in the stretcher. Patient is not in any acute respiratory distress. HEAD AND FACE: No signs of trauma. No ecchymosis, hematomas or skull depressions. No sinus tenderness. EYES: PERRLA, EOMI x 2, No injected conjunctiva, no nystagmus. EARS: Hearing grossly intact. Ear canals and tympanic membranes are within normal limits. MOUTH: Oropharynx within normal limits. NECK: Supple, trachea is midline, no adenopathy, no JVD, no carotid bruit, no c- spine tenderness, neck with full ROM. CHEST: Symmetric, no tenderness at palpation LUNGS: Clear to auscultation bilaterally. No wheezing or crackles. CVS: Regular rate and rhythm, S1 and S2 present, no murmurs or gallops appreciated. ABDOMEN: Soft, non-tender. No signs of distention. No rebound no guarding, and no masses palpated. Bowel sounds are normal. EXTREMITIES: FROM in all major joints, no edema, no cyanosis or clubbing. NEURO: Alert and oriented x 3. No acute neurological deficits. Speech is normal and follows commands. SKIN: Dry and warm; 2nd degree burn with blisters that are intact over the right foot. Triage Information Reviewed: Yes Vital Signs On Initial Exam: Initial Vitals Temp Pulse Resp BP Pulse Ox 100.5 F 86 18 115/78 97 05/17/17 20:45 05/17/17 20:45 05/17/17 20:45 05/17/17 20:45 05/17/17 20:45 Vital Signs Reviewed: Yes Burn Calculation - [place] Formula for Fluid Resuscitation Weight: 92.533 kg 24 -Hour Fluid Replacement: 0.0 Diagnostics - Vital Signs Vital Signs Temp Pulse Resp BP Pulse Ox 05/17/17 20:45 100.5 F 86 18 115/78 97 - Laboratory Lab Statement: Any lab studies that have been ordered have been reviewed, and results considered in the medical decision making process. Burn Course/Dx - Course Assessment/Plan: Pt has 2nd degree burn over right ankle. She was given Percoet for pain and Silvidine if/when the blisters open. Pt D/C home. - Diagnoses Provider Diagnosis: Second degree burn of right ankle Discharge - Discharge Plan Condition: Stable Disposition: HOME Prescriptions: oxyCODONE/Acetamin 5/325 MG* [Percocet 5/325 TAB*] 1 tab PO Q6H PRN #20 tab MDD 4 PRN Reason: Pain Silver Sulfadiazine 1% 400gm* [SILVadine 1% 400 gm jar*] 1 applic TOPICAL BID # 1 jar Patient Education Materials: Second Degree Burn (ED) Referrals: Luis Montes MD [Primary Care Provider] - 3 Days Additional Instructions: RETURN TO THE EMERGENCY DEPARTMENT FOR CHANGING OR WORSENING SYMPTOMS. The documentation as recorded by the Jones calhoun Nilda accurately reflects the service I personally performed and the decisions made by Kari sol Abdul, MD.
== END | disposition home or self-care (01) ==
LOC: ED 20:34
DX: T25.212A Burn of second degree of left ankle, initial encounter (principal); X12.XXXA Contact with other hot fluids, initial encounter; Y93.9 Activity, unspecified; Y92.9 Unspecified place or not applicable; J45.909 Unspecified asthma, uncomplicated; F41.0 Panic disorder [episodic paroxysmal anxiety]; F32.9 Major depressive disorder, single episode, unspecified; Z87.891 Personal history of nicotine dependence
CPT/HCPCS: 16020; 96372; 99282; J0780; J1170

== ENCOUNTER 2017-05-21 10:17 | Emergency (ER) | payer OTHER ==
--- OUTSIDE RECORDS SUMMARY | 2017-05-21 10:43 | XMS REPORT ---
:1980 External Reference #:[id number] Author Organization [facility] [employer] Address [address] [address] Phone [phone] Care Team Providers Name Role Phone Luis Montes MD Primary Care Physician Unavailable Payers Type Date Identification Numbers Payment Provider Subscriber Commercial Policy Number: [id number] [facility] Lor[facility] PayID: [id number] [address] [address] [place] [address] Problems Date Description Provider Status Onset: 10/17/2015 [...] Form Strength Qnty SIG Indications Ordering Provider Celebrex 05/20/ Active Capsules 200mg 30cap take one M06.4 2017 s capsule/ta Margarita, blet twice M.D. daily by mouth as needed for pain, avoid ibuprofen and other nsaids Cymbalta 04/24/ Active Caps DR 60mg 90cap 1 by mouth M35.7 2016 Part s every day Chiara Avila Folic Acid 03/16/ Active Tablets 1mg 90tab take one M06.4 2016 s capsule/ta Margarita, blet daily M.D. by mouth Tramadol HCL 12/12/ Active Tablets 50mg 60tab take one 2016 s capsule/ta Margarita, blet by M.DTai mouth twice daily as needed for pain Cyclobenzaprine 09/23/ Active Tablets 10mg 30tab one by Kai DIXON 2016 s mouth at Margarita, at bedtime M.D. as needed for spasms [...] Unknown 0000 3x a day as needed Silver / Active Cream 1% Unknown Sulfadiazine 0000 Voltaren 04/24/ Hx Gel 1% 200un apply 2 H92.02 2016 - its grams Margarita, 05/20/ twice M.D. 2017 daily as needed for pain to the posterior left ear Methotrexate 03/16/ Hx Tablets 2.5mg 30tab take 4 M06.4 2016 - capsules/t Margarita, 05/20/ ablets by M.DTai 2017 mouth once weekly (not taking) Prednisone 03/03/ Hx Tablets 10mg 30tab take 4 2016 - tabs by Margarita 04/24/ mouth M.DTai 2016 daily for 2 days then 3 tabs daily for 2 days then 2 tabs for 2 days then 1 tab for 2 days then d/c Cymbalta 12/17/ Hx Caps DR 30mg 42cap 1 by mouth M35.7 2016 - Part s every day Margarita 04/24/ for 1 week M.D. 2016 then 2 daily ongoing Etodolac 12/12/ Hx Tablets 400mg 30tab Take one Kai 2016 - s capsule/ta Margarita, 03/16/ blet by M.D. 2016 mouth twice daily as needed for pain, [...] 60tab Take 1 M35.7 Kai 2016 - Tablet By Margarita, 12/17/ Mouth M.D. 2016 [...] x 1 Endo, 03/04/ week, 1bid M.D. 2016 x 1 week, then 1 three times [...] 7 Vital Signs Date Vital Result Comment 05/20/2017 Height 67.5 inches 5'7.50" Weight 208.00 lb Heart Rate 72 /min BP Systolic Sitting 126 mmHg BP Diastolic Sitting 84 mmHg Respiratory Rate 14 /min Pain Level 8 BMI (Body Mass Index) 32.1 kg/m2 04/22/2017 Heart Rate 78 /min BP Systolic [...] Test Date Test Result H/L Range Note Laboratory test 05/11/2017 Angiotensin Converting 27 U/L 8 - 53 1 finding Enzyme CMV Igg/Igm 05/11/2017 Cytomegalovirus IgG Positive Negative 2 Antibody Cytomegalovirus IgM Antibody Negative Negative Neutrophil Cytoplasmic AB 05/11/2017 C-Anca Negative Negative P-Anca Negative Negative 3 Connective Tissue Panel 05/11/2017 Anti-Nuclear Antibody 0.3 U 4 Cyclic Citrullinated Peptide <15.6 U 5 Interpretation See Comment 6 Laboratory test finding 05/11/2017 Erythrocyte Sed Rate 8 mm/Hr 0-14 7 C Reactive Protein 8.75 mg/L High < 5.00 8 Comp Metabolic Panel 05/11/2017 Sodium 136 mmol/L 133-145 Potassium 4.0 mmol/L 3.5-5.0 Chloride 104 mmol/L 101-111 Co2 Carbon Dioxide 24 mmol/L 22-32 Anion Gap 8 mmol/L 2-11 Glucose 95 mg/dL 70-100 Blood Urea Nitrogen 10 mg/dL 6-24 Creatinine 0.69 mg/dL 0.51-0.95 BUN/Creatinine Ratio 14.5 8-20 Calcium 9.2 mg/dL 8.6-10.3 Total Protein 6.5 g/dL 6.4-8.9 Albumin 4.2 g/dL 3.2-5.2 Globulin 2.3 g/dL 2-4 Albumin/Globulin Ratio 1.8 1-3 Total Bilirubin 0.80 mg/dL 0.2-1.0 Alkaline Phosphatase 41 U/L 34-104 Alt 29 U/L 7-52 Ast 17 U/L 13-39 Egfr Non- 96.8 >60 Egfr 124.5 >60 9 CBC Auto Diff 05/11/2017 White Blood Count 7.2 10^3/uL 3.5-10.8 Red Blood Count 4.94 10^6/uL 4.0-5.4 Hemoglobin 13.8 g/dL 12.0-16.0 Hematocrit 41 % 35-47 Mean Corpuscular Volume 83 fL 80-97 Mean Corpuscular Hemoglobin 28 pg 27-31 Mean Corpuscular HGB Conc 34 g/dL 31-36 Red Cell Distribution Width 14 % 10.5-15 Platelet Count 248 10^3/uL 150-450 Mean Platelet Volume 9 um3 7.4-10.4 Abs Neutrophils 4.5 10^3/uL 1.5-7.7 Abs Lymphocytes 2.1 10^3/uL 1.0-4.8 Abs Monocytes 0.4 10^3/uL 0-0.8 Abs Eosinophils 0.2 10^3/uL 0-0.6 Abs Basophils 0 10^3/uL 0-0.2 Abs Nucleated RBC 0 10^3/uL Granulocyte % 62.5 % 38-83 Lymphocyte % 28.8 % 25-47 Monocyte % 5.2 % 1-9 Eosinophil % 2.9 % 0-6 Basophil % 0.6 % 0-2 Nucleated Red Blood Cells % 0 Comp Metabolic Panel 12/15/2016 Sodium 138 mmol/L [...] Egfr Non- 92.2 >60 Egfr 118.5 >60 10 CBC Auto Diff 12/15/2016 White Blood Count [...] 12/15/2016 Erythrocyte Sed Rate 4 mm/Hr 0-14 11 C Reactive Protein 5.52 mg/L High < 5.00 12 Urinalysis Profile 12/15/2016 Urine Color Yellow Urine Appearance Cloudy Urine Specific [place] 1.013 1.010-1.030 Urine pH 5.0 5-9 Urine [...] And 12/15/2016 Urine Culture SEE RESULT BELOW 13 Sensitivities Laboratory test finding 09/19/2016 Erythrocyte Sed Rate 7 mm/Hr 0-14 C Reactive Protein 2.04 mg/L < 5.00 14 CBC Auto Diff 09/19/2016 White Blood Count [...] A (Iga) 125 mg/dL 61 - 356 15 finding Laboratory test 07/22/2016 Erythrocyte Sed Rate <pending> finding C Reactive Protein <pending> Laboratory test 07/22/2016 Immunoglobulin A (Iga) <pending> finding Laboratory test 07/01/2016 C Reactive Protein 2.93 mg/L < 5.00 16 finding Connective Tissue 07/01/2016 Anti-Nuclear Antibody 0.3 U 17 Panel Cyclic Citrullinated Peptide <15.6 U 18 Interpretation See Comment 19 CBC Auto Diff 07/01/2016 White Blood Count [...] Egfr Non- 88.5 >60 Egfr 113.8 >60 20 Laboratory test finding 07/01/2016 Rheumatoid Factor 17 IU/mL <15 21 Uric Acid 4.3 mg/dL 2.3-6.6 22 Laboratory test finding 09/03/2015 Angiotensin Converting Enzyme 19 U/L 8 - 53 23 C Reactive Protein 2.07 mg/L < 5.00 24 Cyclic Citrullinated Pep Igg <15.6 U 25 Hla B27 09/03/2015 Hla B27 Positive 26 Hla B27 Interp See Comment 27 Laboratory test finding 09/03/2015 Erythrocyte Sed Rate 9 mm/Hr 0-14 Rheumatoid Factor 25 IU/mL <15 28 Hepatitis Acute Panel 09/03/2015 Hepatitis C Antibody Nonreactive Nonreactive Hepatitis A AB Igm Nonreactive Nonreactive Hepatitis B Core AB Igm Nonreactive Nonreactive Hepatitis B Surface Ag Nonreactive Nonreactive Joanna Igg AB Reflex 09/03/2015 SS-A/Ro Antibody <0.2 U 29 SS-B/La Antibody <0.2 U 30 Sm (Lopez) IgG Antibody <0.2 U 31 U1-nRNP Antibody <0.2 U 32 Scl-70 (Scleroderma) Antibody <0.2 U 33 Myranda-1 Antibody <0.2 U 34 Igg Subclasses 09/03/2015 Total IgG 790 mg/dL 767 - 1590 Immunoglobulin G1 467 mg/dL 341 - 894 Immunoglobulin G2 232 mg/dL 171 - 632 Immunoglobulin G3 58.3 mg/dL 35 Immunoglobulin G4 23.1 mg/dL 36 S.Pneumoniae Igg AB 23 09/03/2015 S. pneumoniae [...] Type 33F IgG AB 1.4 g/mL >=1.7 37 Laboratory test finding 09/03/2015 Immunoglobulin G (Igg) TNP 38 Immunoglobulin M (Igm) 48 mg/dL 37 - 286 39 1 Test Performed by: [facility] - [address] [address] 2 Test Performed by: [facility] - [facility] [address] [place] [address] 3 Negative for cANCA and pANCA patterns by immunofluorescence. ADDITIONAL INFORMATION This test was developed and its performance characteristics determined by [facility] in a manner consistent with CLIA requirements. This test has not been cleared or approved by the U.S. Food and Drug Administration. Test Performed by: [facility] - [address] [address] 4 REFERENCE VALUE <=1.0 (Negative) 5 REFERENCE VALUE <20.0 (Negative) 6 Tests for antibodies to dsDNA and JOANNA antigens are not performed automatically unless the ANJANA result is > or= 3.0 U. Studies performed at [facility] indicate that positive ANJANA results <3.0 U are rarely accompanied by positive second order tests. Test Performed by: [facility] - [address] [address] 7 Please check today 8 Acute inflammation: >10.00 9 Because ethnic data is not always readily [...] 15-29 5 Kidney failure <15 (or dialysis) 10 Because ethnic data is not always readily [...] 15-29 5 Kidney failure <15 (or dialysis) 11 Please schedule labs and u/a and renal ultrasound this week 12 Acute inflammation: >10.00 13 SEE RESULT BELOW Name: LORRIE GOMEZ : [address]: Kai Avila MD Acct: [id number] Unit: [id number] AGE: 36 Location: LAB Re12/15/16 SEX: F Status: REG REF SPEC: [id number] STEVEN: 12/15/16-[address] [facility] [address]: Kai Avila MD REQ: [id number] RECD: 12/15/16-1311 STATUS: COMP _ SOURCE: URINE SPDESC: ORDERED: Urine Culture Procedure Result Reported Site Urine Culture Final 12/17/16- 08 ML Organism 1 ESCHERICHIA COLI [place] Count 25-50,000 (Moderate) CFU/ML Organism 2 NORMAL BONG [place] Count 10-25,000 (Moderate) CFU/ML 1. ESCHERICHIA COLI [...] antibiotic reporting. * ML - MAIN LAB ([facility]) . END OF REPORT * ML=Testing performed at Main Lab DEPARTMENT OF PATHOLOGY, [address] [place] [address] Juan Pablo Mixon M.D. Director [facility] # [id number] 14 Acute inflammation: >10.00 15 Test Performed by: [address] [address] 16 Acute inflammation: >10.00 17 REFERENCE VALUE <=1.0 (Negative) 18 REFERENCE VALUE <20.0 (Negative) 19 Tests for antibodies to dsDNA and JOANNA antigens are not performed automatically unless the ANJANA result is > or= 3.0 U. Studies performed at [facility] indicate that positive ANJANA results <3.0 U are rarely accompanied by positive second order tests. Test Performed by: [place] [address] [employer]: Marc Porter II, M.D., Ph.D. 20 Because ethnic data is not always readily [...] 15-29 5 Kidney failure <15 (or dialysis) 21 Test Performed by: [place] [address] [employer]: Marc Porter II, M.D., Ph.D. 22 Please schedule labs this week 23 Test Performed by: [place] [address] [employer]: Marc Porter II, M.D., Ph.D. 24 Acute inflammation: >10.00 25 REFERENCE VALUE <20.0 (Negative) Test Performed by: [place] [address] [employer]: Marc Porter II, M.D., Ph.D. 26 REFERENCE VALUE Not Applicable 27 HLA-B27 antigen was detected. Approximately 8% of [...] INFORMATION Method: Flow Cytometry Performing Laboratory CLIA# [id number] Test Performed by: [place] [address] [employer]: Marc Porter II, M.D., Ph.D. 28 Test Performed by: [place] [address] [employer]: Marc Porter II, M.D., Ph.D. 29 REFERENCE VALUE <1.0 (Negative) 30 REFERENCE VALUE <1.0 (Negative) 31 REFERENCE VALUE <1.0 (Negative) 32 REFERENCE VALUE <1.0 (Negative) 33 REFERENCE VALUE <1.0 (Negative) 34 REFERENCE VALUE <1.0 (Negative) Test Performed by: [place] [address] [employer]: Marc Porter II, M.D., Ph.D. 35 REFERENCE VALUE 18.4 - 106.0 36 REFERENCE VALUE 2.4 - 121.0 Test Performed by: [place] [address] [employer]: Marc Porter II, M.D., Ph.D. 37 Either of the two following conditions would [...] only present in Prevnar-13. Test Performed by: [place] [address] [employer]: Marc Porter II, M.D., Ph.D. 38 Immunoglobulin G (IgG), S was cancelled on 09/05/2015 at 08:23; Test cancelled by RBS rule <[email or web address]> Reason: Test IGG is cancelled due to be ordered with Test IGGS Test Performed by: [place] [address] [employer]: Marc Porter II, M.D., Ph.D. 39 Test Performed by: [place] [address] [employer]: Marc Porter II, M.D., Ph.D. Procedures Description No Information Encounters Type Date Location Provider CPT E/M Dx Office Visit 04/24/2017 [facility] Kai Avila M.D. [address] H92.02 10:20a Of [facility] M06.4 Z79.899 M46.90 L04.0 Office Visit 04/22/2017 9:15a [facility], [address] H92.02 [facility]or [place] Office Visit 03/16/2017 9:20a [facility] Kai Avila, [address] M06.4 Of [facility] [place] M35.7 K90.0 M54.5 M46.90 Z79.899 Office Visit 01/08/2017 2:00p [facility] [place] [address] M54.5 [employer] D17.1 Office Visit 12/17/2016 10:20a [facility] Kai Avila, [address] M46.90 Of [facility] [place] R74.8 M06.4 G89.4 Office Visit 09/23/2016 9:20a [facility] Kai Avila, [address] M06.4 Amor [place] R74.8 M46.90 Z79.899 G89.4 Office Visit 07/22/2016 8:20a [facility] Kai Avila, [address] M06.4 Amor [place] R74.8 M46.90 D82.8 M35.7 Office Visit 05/26/2016 4:20p [facility] Kai Avila, [address] M06.4 Amor [place] Z79.899 K90.0 M46.90 Office Visit 11/28/2015 1:00p [facility] Kai Avila [address] M06.4 Amor [place] M47.9 Z79.899 Office Visit 10/17/2015 1:40p [facility] Xavi Granda M.D. 35398 M06.4 Of [facility]or R76.0 R76.8 Z79.899 G89.29 Office Visit 07/17/2015 9:00a [facility] Kai [place], [address] M06.4 Amor [place] R76.0 M54.14 D82.8 M35.7 Plan of Care 05/20/2017 - Kai Avila M.D.M06.4 Inflammatory polyarthropathyNew Medication :Celebrex 200 mgH92.02 Otalgia, left earNew Xrays:MRI Brain W/OA88.1 Epidemic vertigoReferral:Patrice Fall M.D., [id number] Other intermediate teacher ( current) drug therapyFollow up:Follow up in 1 month
[2017-05-21] MEDS ORDERED: Ketorolac INJ* 30 MG/ML 1 ML VIAL IV ONE (11:39)
[2017-05-21] MEDS ORDERED: NS 0.9% 1000 ML* 1,000 ML IV ONE (11:39)
[2017-05-21] MEDS ORDERED: Clindamycin 600 MG IVPREMIX(* 600 MG/50 ML SDV IV ONE (11:42)
[2017-05-21 12:08] LABS: ABS Basophils 0.1 10^3/ul (0-0.2); ABS Eosinophils 0.2 10^3/ul (0-0.6); ABS Lymphocytes 1.9 10^3/ul (1.0-4.8); ABS Monocytes 0.6 10^3/ul (0-0.8); ABS Neutrophils 6.6 10^3/ul (1.5-7.7); ABS Nucleated RBC 0 10^3/ul; Eosinophil % 2.3 % (0-6); Hematocrit 38 % (35-47); Hemoglobin 12.9 g/dl (12.0-16.0); Lymphocyte % 20.5 % (25-47); Mean Corpuscular HGB Conc 34 g/dl (31-36); Mean Corpuscular Hemoglobin 28 pg (27-31); Mean Corpuscular Volume 84 fL (80-97); Mean Platelet Volume 8 um3 (7.4-10.4); Nucleated Red Blood Cells % 0; Platelet Count 254 10^3/ul (150-450); Red Blood Count 4.54 10^6/ul (4.0-5.4); Red Cell Distribution Width 15 % (10.5-15); White Blood Count 9.4 10^3/ul (3.5-10.8)
[2017-05-21 12:25] LABS: EGFR Non-African American 131.3 (>60)
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
[2017-05-21] MEDS ORDERED: Ondansetron INJ* 2 MG/ML VIAL IV ONE (13:33)
[2017-05-21] MEDS ORDERED: Morphine INJ* 4 MG/ML 1 ML CARPUJECT IV ONE (13:33)
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
[2017-05-21 14:14] VITALS: BP 132/76
== END 2017-05-21 14:13 | disposition home or self-care (01) ==
LOC: ED 10:17
DX: R03.0 Elevated blood-pressure reading, without diagnosis of hypertension (principal); T25.221A Burn of second degree of right foot, initial encounter; L03.115 Cellulitis of right lower limb; R42 Dizziness and giddiness; R05 Cough; Z87.891 Personal history of nicotine dependence; X11.8XXA Contact with other hot tap-water, initial encounter; Y92.9 Unspecified place or not applicable
CPT/HCPCS: 36415; 71045; 80053; 83605; 84702; 85025; 86140; 87040; 96374; 96375; 99283; J1885; J2270; J2405

== ENCOUNTER 2017-05-24 06:35 | Emergency (ER) | payer OTHER ==
[2017-05-24] MEDS ORDERED: Metoclopramide TAB* 10 MG PO ONE ×2 (07:16→08:12)
[2017-05-24] MEDS ORDERED: HYDROcodone/ACETAMIN 5-325 MG* 1 TAB PO ONE (07:16)
[2017-05-24 08:15] VITALS: BP 124/64
[2017-05-24] MEDS ORDERED: Metoclopramide TAB* 10 MG ONE (08:17)
--- NOTE | 2017-05-24 08:40 | ED ---
Dinesh Mtz Nikita, scribed for Robin Johnston MD on 05/24/17 at 0716 . 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 The patient rates the pain 9/10 in severity. Symptoms aggravated by friction. Symptoms alleviated by nothing (pt took pain medication to no relief) . Patient reports nausea, R foot pain, and fever (yesterday; resolved today). Patient denies diarrhea, constipation, and chills. Pt is unable to keep down her antibiotics and pain medication. - History Of Current Complaint Chief Complaint: EDNauseaVomitDiarrh Time Seen by Provider: 05/24/17 07:07 Hx Obtained From: Patient Onset/Duration: Sudden Onset, Lasting Hours, Still Present Timing: Constant, Hours Severity Currently: Severe Severity Initially: Severe Aggravating Factor(s): friction Alleviating Factor(s): nothing (pt took pain medication to no relief) Associated Signs And Symptoms: Positive: Other - Patient reports nausea, R foot pain, and fever (yesterday; resolved today). Patient denies diarrhea, constipation, and chills. - Allergies/Home Medications Allergies/Adverse Reactions: Allergies Allergy/AdvReac Type Severity Reaction Status Date / Time Cephalexin [From Keflex] Allergy Intermediate Hives Verified 05/21/17 10:26 PMH/Surg Hx/FS Hx/Imm Hx Endocrine/Hematology History: Denies: Hx Diabetes, Hx Thyroid Disease Cardiovascular History: Denies: Hx Congestive Heart Failure, Hx Hypertension, Hx Pacemaker/ICD Respiratory History: Reports: Hx Asthma Denies: Hx Chronic Obstructive Pulmonary Disease (COPD) GI History: Denies: Hx Ulcer Comment Only: Other GI Disorders - PAIN 2 YRS UNKNOWN History: Reports: Other Problems/Disorders - celiac disease Denies: Hx Renal Disease Sensory History: Denies: Hx Hearing Aid Neurological History: Reports: Other Neuro Impairments/Disorders - HX DEGENERATIVE BONE DISEASE, sciatica Psychiatric History: Reports: Hx Anxiety, Hx Depression, Hx Panic Disorder - Surgical History Surgery Procedure, Year, and Place: DENTAL SURGERY 04/21/14. T&A 05/12/13. C SECTION 10/17/14. NUVARING - SAFE FOR ONLY 1.5T - Immunization History Date of Tetanus Vaccine: 8/12 Date of Influenza Vaccine: 01/10/14 Infectious Disease History: No Infectious Disease History: Denies: Hx Clostridium Difficile, Hx Hepatitis, Hx Human Immunodeficiency Virus (HIV), Hx of Known/Suspected MRSA, Hx Shingles, Hx Tuberculosis, Traveled Outside the [place] in Last 30 Days - Family History Known Family History: Positive: Hypertension, Diabetes - Social History Alcohol Use: Occasionally Substance Use Type: Reports: None Smoking Status (MU): Former Smoker Type: Cigarettes Have You Smoked in the Last Year: Yes Review of Systems Positive: Fever - yesterday; resolved today. Negative: Chills Positive: Vomiting, Nausea, Other - denies constipation. Negative: Diarrhea Positive: Other - R foot pain All Other Systems Reviewed And Are Negative: Yes Physical Exam - Summary Physical Exam Summary: VITAL SIGNS: Reviewed. GENERAL: ~Patient is a well-developed and nourished FEMALE who is lying comfortable in the stretcher. ~Patient is not in any acute respiratory distress. HEAD AND FACE: No signs of trauma. ~No ecchymosis, hematomas or skull depressions. No sinus tenderness. EYES: PERRLA, EOMI x 2, No injected conjunctiva, no nystagmus. EARS: Hearing grossly intact. Ear canals and tympanic membranes are within normal limits. MOUTH: Oropharynx within normal limits. NECK: Supple, trachea is midline, no adenopathy, no JVD, no carotid bruit, no c- spine tenderness, neck with full ROM. CHEST: Symmetric, no tenderness at palpation LUNGS: Clear to auscultation bilaterally. No wheezing or crackles. CVS: Regular rate and rhythm, S1 and S2 present, no murmurs or gallops appreciated. ABDOMEN: Soft, non-tender. No signs of distention. No rebound no guarding, and no masses palpated. Bowel sounds are normal. EXTREMITIES: FROM in all major joints, no edema, no cyanosis or clubbing. 5 cm wound after sustaining 2nd degree burn on R foot. Pt is taking abx. Doesnt look infected; no discharge, some surrounding erythema secondary to well healing. NEURO: Alert and oriented x 3. No acute neurological deficits. Speech is normal and follows commands. SKIN: Dry and warm Triage Information Reviewed: Yes Vital Signs On Initial Exam: Initial Vitals Temp Pulse Resp BP Pulse Ox 97.2 F 85 22 136/82 98 05/24/17 06:36 05/24/17 06:36 05/24/17 06:36 05/24/17 06:36 05/24/17 06:36 Vital Signs Reviewed: Yes Diagnostics - Vital Signs Vital Signs Temp Pulse Resp BP Pulse Ox 05/24/17 06:36 97.2 F 85 22 136/82 98 - Laboratory Lab Statement: Any lab studies that have been ordered have been reviewed, and results considered in the medical decision making process. Re-Evaluation - Re-Evaluation First Eval Re-Evaluation Time: 08:11 Comment: Discussed discharge plan with the pt. 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 There are no signs of infection. I believe the nausea and vomiting were secondary to abx. Therefore pt was given reglan and symptoms improved. The pt was able to tolerate po. Therefore she will be discharged home with a prescription for reglan. She will continiue taking bactrin as indicated by her PCP. Pt will be discharged. Pt is agreeable with this plan. - Diagnoses Differential Diagnoses/HQI/PQRI: Other - nausea and vomiting Provider Diagnoses: Nausea and vomiting Discharge - Discharge Plan Condition: Stable Disposition: HOME Prescriptions: Metoclopramide TAB* [Reglan TAB*] 10 mg PO Q8H #15 tab Patient Education Materials: Acute Nausea and Vomiting (ED) Referrals: Luis Montes MD [Primary Care Provider] - 3 Days The documentation as recorded by the Dinesh calhoun Nikita accurately reflects the service I personally performed and the decisions made by me, Robin Johnston MD.
== END 2017-05-24 08:14 | disposition home or self-care (01) ==
LOC: ED 06:35
DX: R11.2 Nausea with vomiting, unspecified (principal)
CPT/HCPCS: 99282; A9270-GY

== ENCOUNTER 2017-11-02 09:33 | Emergency (ER) | payer OTHER ==
--- OUTSIDE RECORDS SUMMARY | 2017-11-02 10:26 | XMS REPORT ---
:1980 External Reference #:[id number] Author Organization [facility] Address [address] [place] [address] Phone [phone] Care Team Providers Name Role Phone Luis Montes M.D. 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 Onset: 08/27/2017 Cervico-occipital neuralgia Jet Brennan MD Active Family History Date Family Member(s) Problem(s) Comments General Allergies General Asthma Social History Type Date Description Comments 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 Cigarette Use Former Cigarette Smoker 1/2 Pack Daily x 15 yrs Cigars Never Smoked Cigars Pipe Never Smoked A Pipe Smokeless Tobacco Never Used Smokeless Tobacco ETOH Use Denies alcohol use Allergies, Adverse Reactions, Alerts Date Description Reaction Status Severity Comments 01/09/2017 Keflex Urticaria active Medications Medication Date Status Form Strength Qnty SIG Indications Ordering Provider Nuvaring Active Ring 0.12-0.015 Stevanolaurie 000 mg/24HR , Chiara Smith Cymbalta Active Weaning Simon 000 off , Chiara Smith Vitamin D Active Capsules 1000Unit as Simon (Cholecalcife 000 directed Luis rol) Chiara Vitamin B Active Tablets 1 by mouth Simon Complex 000 every day , Chiara Smith Magnesium Active as Garyanovic 000 directed Luis M.D. Zinc Active as Stevanovic 000 directed , Chiara Smith Duloxetine Active Caps DR 60mg Take One Unknown HCL 000 Part Capsule By Mouth Every Day Tramadol HCL Hx Tablets 50mg Margarita 000 - M.DTai, Kai Lopes Vital Signs Date Vital Result Comment 10/22/2017 Weight 204.00 lb Weight in kg's 92.534 Height 67.50 inches 5'7.50" Height in cm's 171.4 cm BMI (Body Mass Index) 31.5 kg/m2 09/10/2017 Weight 204.00 lb Weight in kg's 92.534 Height 67.50 inches 5'7.50" Height in cm's 171.4 cm BMI (Body Mass Index) 31.5 kg/m2 09/04/2017 Weight 204.00 lb Weight in kg's 92.534 Height 67.50 inches 5'7.50" Height in cm's 171.4 cm BMI (Body Mass Index) 31.5 kg/m2 08/27/2017 Weight 204.00 lb Weight in kg's 92.534 Height 67.50 inches 5'7.50" Height in cm's 171.4 cm BMI (Body Mass Index) 31.5 kg/m2 01/09/2017 BP Systolic 125 mmHg BP Diastolic 83 mmHg Heart Rate 78 /min Respiratory Rate 17 /min Weight 204.00 lb Weight in kg's 92.534 Height 67.50 inches 5'7.50" Height in cm's 171.4 cm BMI (Body Mass Index) 31.5 kg/m2 Results Description No Information Procedures Date CPT Code Description Status 09/10/2017 16656 Injection,Anesthetic Agent Completed 09/04/2017 24299 Injection,Anesthetic Agent Completed 08/27/2017 20449 Injection,Anesthetic Agent Completed Encounters Type Date Location Provider CPT E/M Dx Office Visit 10/22/2017 8:45a [place] 05/04/07 [place] [address] J31.0 J32.9 G50.1 Office Visit 08/27/2017 8:45a [place] 05/04/07 [place] [address] M54.81 G50.1 J31.0 J32.9 Office Visit 01/09/2017 11:00a [place] 05/04/07 [place] [address] R59.0 Plan of Care Future Appointment(s):11/12/2017 11:30 am - Jet Brennan MD at [place] - Jet Brennan MDJ31.0 Chronic ynkyrpqoC55.9 Chronic sinusitis, unspecifiedComments:Patient with symptoms of chronic sinusitis with nasal dyspnea rhinorrhea not improving with topical medical medical patient including oral antihistamines previous CT of the head shows opacification of the sinuses is scheduled for CT of the paranasal sinuses.As far as her facial pain is concerned she is markedly improved recheck back when necessary.G50.1 Atypical facial pain
[2017-11-02 10:48] LABS: ABS Basophils 0 10^3/ul (0-0.2); ABS Eosinophils 0.1 10^3/ul (0-0.6); ABS Lymphocytes 1.5 10^3/ul (1.0-4.8); ABS Monocytes 0.3 10^3/ul (0-0.8); ABS Neutrophils 3.1 10^3/ul (1.5-7.7); ABS Nucleated RBC 0 10^3/ul; Eosinophil % 1.2 % (0-6); Hematocrit 38 % (35-47); Hemoglobin 13.5 g/dl (12.0-16.0); Lymphocyte % 29.4 % (25-47); Mean Corpuscular HGB Conc 35 g/dl (31-36); Mean Corpuscular Hemoglobin 29 pg (27-31); Mean Corpuscular Volume 83 fL (80-97); Mean Platelet Volume 8.8 um3 (7.4-10.4); Nucleated Red Blood Cells % 0; Platelet Count 230 10^3/ul (150-450); Red Blood Count 4.63 10^6/ul (4.00-5.40); Red Cell Distribution Width 14 % (10.5-15)
--- NOTE | 2017-11-02 11:08 | RAD ---
HISTORY: tightness in the chest COMPARISONS: May 21, 2017 VIEWS: 4: Frontal dual-energy and lateral views of the chest. FINDINGS: CARDIOMEDIASTINAL SILHOUETTE: The cardiomediastinal silhouette is normal. AYAZ: The ayaz are normal. PLEURA: The costophrenic angles are sharp. No pleural abnormalities are noted. LUNG PARENCHYMA: The lungs are clear. ABDOMEN: The upper abdomen is clear. There is no subphrenic gas. BONES AND SOFT TISSUES: No bone or soft tissue abnormalities are noted. OTHER: None. IMPRESSION: NO ACTIVE CARDIOPULMONARY DISEASE.
--- NOTE | 2017-11-02 11:14 | ED ---
Palpitations / Dysrhythmia - HPI Summary HPI Summary: Patient is a 37-year-old female presenting to the ED with intermittent heart palpitations lasting from 15 seconds to 3-1/2 minutes over the past several days. She states she has been tapering her dose of Cymbalta over the past 2 weeks and her last dose was 5 days ago. Denies any cardiac history. Denies history of depression, but endorses some anxiety. Patient was placed on Cymbalta for right leg pain and paresthesia. She states she understands side effects, but wanted to assure there was nothing wrong with her heart. She has denied any chest pain or shortness of breath during this time. She denies any other symptoms or complaints. She has not been under more stress recently and does not feel she has more anxiety than baseline. She endorses symptoms as a fluttering, aggravated by nothing and alleviated with nothing. - History of Current Complaint Chief Complaint: EDDysrhythmPalp Time Seen by Provider: 11/02/17 09:42 Hx Obtained From: Patient Onset/Duration: Gradual Onset Timing: Constant Severity Initially: Moderate Severity Currently: Moderate Character: Fast Aggravating: Exertion Alleviating: Nothing Associated Signs & Symptoms: Negative - Risk Factors Cardiac: Negative Pulmonary Embolism: Negative Atrial Fibrillation: Negative - Allergy/Home Medications Allergies/Adverse Reactions: Allergies Allergy/AdvReac Type Severity Reaction Status Date / Time Cephalexin [From Keflex] Allergy Intermediate Hives Verified 05/21/17 10:26 Home Medications: Home Medications Cholecalciferol TAB* [Vitamin D TAB*] 1,000 unit PO DAILY 11/02/17 [History Confirmed 11/02/17] Magnesium Oxide [Magnesium] 400 mg PO DAILY 11/02/17 [History Confirmed 11/02/17 ] Multivitamins/Minerals TAB* [Theragran/minerals TAB*] 1 tab PO DAILY 11/02/17 [ History Confirmed 11/02/17] Willowbark Extract 1 cap PO BID 11/02/17 [History Confirmed 11/02/17] PMH/Surg Hx/FS Hx/Imm Hx Previously Healthy: Yes Endocrine/Hematology History: Denies: Hx Diabetes, Hx Thyroid Disease Cardiovascular History: Denies: Hx Congestive Heart Failure, Hx Hypertension, Hx Pacemaker/ICD Respiratory History: Reports: Hx Asthma Denies: Hx Chronic Obstructive Pulmonary Disease (COPD) GI History: Denies: Hx Ulcer Comment Only: Other GI Disorders - PAIN 2 YRS UNKNOWN History: Reports: Other Problems/Disorders - celiac disease Denies: Hx Renal Disease Sensory History: Denies: Hx Hearing Aid Neurological History: Reports: Other Neuro Impairments/Disorders - HX DEGENERATIVE BONE DISEASE, sciatica Psychiatric History: Reports: Hx Anxiety, Hx Depression, Hx Panic Disorder - Surgical History Surgery Procedure, Year, and Place: DENTAL SURGERY 04/21/14. T&A 05/12/13. C SECTION 10/17/14. NUVARING - SAFE FOR ONLY 1.5T - Immunization History Date of Tetanus Vaccine: 12/13 Date of Influenza Vaccine: 01/10/14 Hx Pertussis Vaccination: No Immunizations Up to Date: Unable to Obtain/Confirm Infectious Disease History: No Infectious Disease History: Denies: Hx Clostridium Difficile, Hx Hepatitis, Hx Human Immunodeficiency Virus (HIV), Hx of Known/Suspected MRSA, Hx Shingles, Hx Tuberculosis, Traveled Outside the [place] in Last 30 Days - Family History Known Family History: Positive: Hypertension, Diabetes - Social History Occupation: Employed Full-time Lives: With Family Alcohol Use: Occasionally Hx Substance Use: No Substance Use Type: Reports: None Hx Tobacco Use: Yes Smoking Status (MU): Former Smoker Type: Cigarettes Have You Smoked in the Last Year: Yes Review of Systems Constitutional: Negative Negative: Fever, Chills, Fatigue - there Negative: Photophobia, Blurred Vision Negative: Dental Pain, Sore Throat Positive: Palpitations. Negative: Chest Pain Negative: Shortness Of Breath, Cough Genitourinary: Negative Positive: no symptoms reported, pain Negative: Rash, Bruising Positive: Anxious All Other Systems Reviewed And Are Negative: Yes Physical Exam Triage Information Reviewed: Yes Vital Signs On Initial Exam: Initial Vitals Temp Pulse Resp BP Pulse Ox 98.1 F 71 19 111/78 98 11/02/17 09:45 11/02/17 09:45 11/02/17 09:45 11/02/17 09:45 11/02/17 09:45 Vital Signs Reviewed: Yes Appearance: Positive: Well-Appearing, Well-Nourished Skin: Positive: Warm, Skin Color Reflects Adequate Perfusion Head/Face: Positive: Normal Head/Face Inspection Eyes: Positive: EOMI, JORGE A, Conjunctiva Clear Neck: Positive: Supple, Nontender Respiratory/Lung Sounds: Positive: Clear to Auscultation, Breath Sounds Present Cardiovascular: Positive: RRR, Pulses are Symmetrical in both Upper and Lower Extremities. Negative: Tachycardia, Leg Edema Left, Leg Edema Right Musculoskeletal: Positive: Normal, Strength/ROM Intact Neurological: Positive: Sensory/Motor Intact, Alert, Oriented to Person Place, Time, Speech Normal Psychiatric: Positive: Normal, Affect/Mood Appropriate AVPU Assessment: Alert Diagnostics - Vital Signs Vital Signs Temp Pulse Resp BP Pulse Ox 11/02/17 10:21 72 17 115/67 100 11/02/17 10:20 75 23 100 11/02/17 09:45 98.1 F 71 19 111/78 98 - Laboratory Lab Results: Lab Results 11/02/17 11/02/17 Range/Units 10:33 10:33 WBC 5.0 (3.5-10.8) 10^3/ul RBC 4.63 (4.00-5.40) 10^6/ul Hgb 13.5 (12.0-16.0) g/dl Hct 38 (35-47) % MCV 83 (80-97) fL MCH 29 (27-31) pg MCHC 35 (31-36) g/dl RDW 14 (10.5-15) % Plt Count 230 (150-450) 10^3/ul MPV 8.8 (7.4-10.4) um3 Neut % (Auto) 61.9 (38-83) % Lymph % (Auto) 29.4 (25-47) % Edmunds % (Auto) 6.8 (0-7) % Eos % (Auto) 1.2 (0-6) % Baso % (Auto) 0.7 (0-2) % Absolute Neuts (auto) 3.1 (1.5-7.7) 10^3/ul Absolute Lymphs (auto) 1.5 (1.0-4.8) 10^3/ul Absolute Monos (auto) 0.3 (0-0.8) 10^3/ul Absolute Eos (auto) 0.1 (0-0.6) 10^3/ul Absolute Basos (auto) 0 (0-0.2) 10^3/ul Absolute Nucleated RBC 0 10^3/ul Nucleated RBC % 0 Sodium Pending Potassium Pending Chloride Pending Carbon Dioxide Pending Anion Gap Pending BUN Pending Creatinine Pending Est GFR ( Amer) Pending Est GFR (Non-Af Amer) Pending BUN/Creatinine Ratio Pending Glucose Pending Calcium Pending Total Bilirubin Pending AST Pending ALT Pending Alkaline Phosphatase Pending Troponin I 0.00 (<0.04) ng/mL Total Protein Pending Albumin Pending Globulin Pending Albumin/Globulin Ratio Pending Result Diagrams: 11/02/17 10:33 11/02/17 10:33 Lab Statement: Any lab studies that have been ordered have been reviewed, and results considered in the medical decision making process. Course/Dx - Course Course Of Treatment: During the course of treatment, the patient is evaluated for a fluttering, palpitations over the past several days. She was recently tapering down her dose of Cymbalta and last use was 5 days ago. Troponin obtained at 0.00. All other labs are unremarkable. EKG normal sinus rhythm. Patient is in no acute distress. Lungs CTA. RRR. Moist mucous membranes. Vital signs are stable and patient remains afebrile. No previous cardiac history. It was explained to the patient SNRI/SSRI tapers and/or abrupt discontinuation's have a tendency to cause palpitations, anxiety, nausea, vomiting among other unwanted side effects. Likely this is the etiology of her symptom and should this should dissipate in 1-2 weeks. I have encouraged her to follow up with her PCP. She is OK with this plan and discharge. I have agreed to provide her with ativan for any breakthough anxiety symptoms during this time. She is agreeable to this. - Diagnoses Differential Diagnosis/HQI/PQRI: Positive: Panic Disorder Provider Diagnoses: Palpitations, Absence of medication side effects Discharge - Sign-Out/Discharge Documenting (check all that apply): Discharge/Admit/Transfer - Discharge Plan Condition: Stable Disposition: HOME Prescriptions: LORazepam TAB(*) [Ativan 1 MG TAB (*)] 1 mg PO Q8H PRN #10 tab MDD 3 PRN Reason: Anxiety Patient Education Materials: Heart Palpitations (ED) Referrals: Luis Montes MD [Primary Care Provider] - Additional Instructions: Abruptly stopping or rapidly tapering antidepressants often causes adverse effects, especially if a new drug with overlapping pharmacodynamic activity is not started. The constellation of discontinuation effects, sometimes referred to as a "discontinuation syndrome," has been best characterized in patients who abruptly stop selective serotonin reuptake inhibitors (SSRIs). The most common discontinuation symptoms include dizziness, fatigue, headache, nausea, agitation , anxiety, insomnia, irritability. Symptoms are usually mild and will dissipate over 1-2 weeks without specific treatment, however distressing symptoms can persist for a month or longer. Please follow-up with your doctor if symptoms persist. - Billing Disposition and Condition Condition: STABLE Disposition: Home
[2017-11-02 12:04] VITALS: BP 144/71
== END 2017-11-02 12:02 | disposition home or self-care (01) ==
LOC: ED 09:33
DX: R00.2 Palpitations (principal); F41.9 Anxiety disorder, unspecified; Z87.891 Personal history of nicotine dependence; Z88.3 Allergy status to other anti-infective agents
CPT/HCPCS: 36415; 71046; 80053; 84484; 85025; 93005; 99283